=== PATIENT | female | born 1995 | race Caucasian/White ===

== ENCOUNTER 2021-08-06 09:32 | Emergency (ER) | payer OTHER ==
[~2021-08-06] VITALS: Ht 167.6 cm; Wt 61.4 kg
[2021-08-06] MEDS ORDERED: ALBUTEROL SULFATE 2.5 MG/0.5 ML INH NEB SOLN INH ONE (09:45)
[2021-08-06] MEDS ORDERED: fentaNYL 100 MCG/2 ML INJECTION IV PRN (09:45)
[2021-08-06] MEDS ORDERED: LR 1,000 ML IV SCH (09:45)
[2021-08-06] MEDS ORDERED: ONDANSETRON 4MG/2ML VIAL IV PRN (09:45)
[2021-08-06] MEDS ORDERED: oxyCODONE 5MG TAB PO PRN (09:45)
[2021-08-06] MEDS ORDERED: HYDROMORPHONE HCL 0.5 MG/ 0.5 ML SYRINGE (J1170 PER 1) IV PRN (09:45)
[2021-08-06 11:22] LABS: BASO # 0.1 10^3/uL (0.0-0.2); BASO % 0.7 % (0.0-1.0); EOS # 0.1 10^3/uL (0.0-0.5); EOS % 0.6 % (0.0-3.0); HEMATOCRIT 39.7 % (36.0-47.0); HEMOGLOBIN 13.1 g/dl (12.0-15.5); LYMPH # 1.9 10^3/uL (1.5-5.0); LYMPH % 19.8 % (24.0-44.0); MEAN CORPUSCULAR HEMOGLOBIN 29.8 pg (27.0-33.0); MEAN CORPUSCULAR VOLUME 90.2 fl (80.0-96.0); MONO # 0.6 10^3/uL (0.0-0.8); MONO % 6.6 % (2.0-8.0); NEUTROPHILS # 6.9 10^3/uL (1.5-8.5); NEUTROPHILS % 71.9 % (36.0-66.0); PLATELET COUNT, AUTOMATED 262 10^3/uL (150-450); WHITE BLOOD COUNT 9.6 10^3/uL (4.0-10.0)
[2021-08-06 11:47] LABS: BLOOD UREA NITROGEN 7 MG/DL (7-18); CALCIUM LEVEL 8.8 MG/DL (8.5-10.1); CARBON DIOXIDE LEVEL 26 MEQ/L (21-32); CHLORIDE LEVEL 109 MEQ/L (98-107); CREATININE FOR GFR 0.58 MG/DL (0.55-1.30); GLOMERULAR FILTRATION RATE > 60.0 (>60); GLUCOSE, FASTING 100 MG/DL (70-100); POTASSIUM SERUM 4.2 MEQ/L (3.5-5.1); SODIUM LEVEL 139 MEQ/L (136-145)
[2021-08-06] MEDS ORDERED: NAPROXEN 250 MG TAB PO ONE (12:25)
[2021-08-06] MEDS ORDERED: NAPR-837 PO (13:25)
[2021-08-06 13:30] VITALS: BP 113/67
== END 2021-08-06 14:07 | disposition home or self-care (01) ==
LOC: M ED 09:32
DX: M94.0 Chondrocostal junction syndrome [Tietze] (principal); Z88.7 Allergy status to serum and vaccine

== ENCOUNTER → 2022-03-27 | Outpatient (REF) ==
[~2022-03-27] MED LIST: NAPR-837 PO
== END ==
LOC: M LAB 15:15
PROVIDERS: ATTEND Nurse Practitioner Adult Health
DX: Z00.00 Encounter for general adult medical examination without abnormal findings (principal)

== ENCOUNTER → 2022-04-30 | Outpatient (REF) ==
[2022-04-30 13:45] LABS: RSV AMPLIFICATION NEGATIVE (NEGATIVE)
== END ==
LOC: M LABSMTC 09:05
PROVIDERS: ATTEND Family Medicine
DX: Z20.818 Contact with and (suspected) exposure to other bacterial communicable diseases (principal)